=== PATIENT | male | born 1960 | race Caucasian/White ===

== ENCOUNTER 2017-05-05 10:28 | Emergency (ER) | payer OTHER ==
[~2017-05-05] VITALS: Ht 177.8 cm; Wt 88.6 kg
[2017-05-05] MEDS ORDERED: INSU100I26 SQ (10:43)
[2017-05-05] MEDS ORDERED: ASPI81 PO (10:43)
[2017-05-05] MEDS ORDERED: LAMO25 PO (10:47)
[2017-05-05] MEDS ORDERED: GABA-531 PO (10:47)
[2017-05-05] MEDS ORDERED: INSU100I15 SQ (10:47)
[2017-05-05] MEDS ORDERED: HYDR25TA PO (10:47)
[2017-05-05] MEDS ORDERED: LISI-662 PO (10:47)
[2017-05-05] MEDS ORDERED: FLUO-191 PO (10:47)
[2017-05-05] MEDS ORDERED: SODIUM CHLORIDE 0.9% 1,000 ML IV ONE (11:00)
[2017-05-05 11:07] LABS: GLUCOSE,POINT OF CARE 449 MG/DL (70-110)
[2017-05-05 11:16] LABS: BASOPHILS # (AUTO) 0.08 K/uL (0.00-0.20); BASOPHILS % (AUTO) 1.4 % (0.0-2.0); EOSINOPHILS % (AUTO) 1.96 % (1.0-6.0); HEMATOCRIT 43.3 % (41-53); HEMOGLOBIN 15.3 g/dL (13.5-17.5); LYMPHOCYTES # (AUTO) 1.7 K/uL (1.0-4.8); LYMPHOCYTES % (AUTO) 31.2 % (22.0-44.0); MEAN CORPUSCULAR HEMOGLOBIN 31.5 pg (26.0-34.0); MEAN CORPUSCULAR HGB CONC 35.2 G/dL (31.0-37.0); MEAN CORPUSCULAR VOLUME 89 fL (80-100); MONOCYTES # (AUTO) 0.4 K/uL (0.1-1.0); MONOCYTES % (AUTO) 8.3 % (2.0-9.0); NEUTROPHILS % (AUTO) 57.1 % (40.0-70.0); PLATELET COUNT (AUTO) 173 K/uL (150-450); RED BLOOD CELL COUNT(AUTO) 4.85 MIL/uL (4.50-5.90)
[2017-05-05 11:32] LABS: ALANINE AMINOTRANSFERASE 33 U/L (12-78); ALBUMIN 3.6 g/dL (3.4-5.0); ALKALINE PHOSPHATASE 91 U/L (46-116); ANION GAP 13 mmol/L (8-16); ASPARTATE AMINOTRANSFERASE 29 U/L (15-37); BILIRUBIN,TOTAL 0.5 mg/dL (0.1-1.0); CALCIUM, TOTAL 8.1 mg/dL (8.8-10.5); CARBON DIOXIDE 22 mmol/L (22-29); CHLORIDE 96 mmol/L (98-107); CREATININE 0.92 mg/dL (0.60-1.30); GLOMERULAR FILTR. RATE CALC > 60 mL/min (>60); POTASSIUM 4.1 mmol/L (3.5-5.1); SODIUM SERUM 131 mmol/L (136-145); TOTAL PROTEIN, SERUM 7.1 g/dL (6.4-8.2); UREA NITROGEN, BLOOD 14 mg/dL (7-18)
[2017-05-05 11:38] LABS: GLUCOSE,RANDOM 449 mg/dL (70-110)
[2017-05-05 11:53] LABS: APPEARANCE,URINE CLEAR (CLEAR); BILIRUBIN,URINE NEGATIVE (NEGATIVE); GLUCOSE, URINE (UA) >=1000 mg/dL (NEGATIVE); KETONES,URINE NEGATIVE (NEGATIVE); LEUKOCYTE ESTERASE ,URINE NEGATIVE (NEGATIVE); NITRATE,URINE NEGATIVE (NEGATIVE); OCCULT BLOOD,URINE NEGATIVE (NEGATIVE); PROTEIN,URINE NEGATIVE (NEGATIVE); UROBILINOGEN,URINE 0.2 mg/dL (<=1.0)
[2017-05-05 11:55] LABS: ACETONE,BLOOD NEGATIVE (NEGATIVE)
[2017-05-05 12:13] LABS: BACTERIA,URINE None Seen /HPF (None Seen); RBC,URINE None Seen /HPF (0-2); SQUAMOUS EPITHELIAL CELL,UR Few /LPF (None Seen); WBC,URINE None Seen /HPF (0-5)
[2017-05-05 12:13] LABS: GLUCOSE,POINT OF CARE 349 MG/DL (70-110)
[2017-05-05] MEDS ORDERED: INSULIN REGULAR, HUMAN 100 UNITS/ML IVP ONE (12:15)
[2017-05-05 13:05] VITALS: BP 130/84
== END 2017-05-05 13:33 | disposition home or self-care (01) ==
LOC: EMS 10:31
DX: E11.65 Type 2 diabetes mellitus with hyperglycemia (principal); F32.9 Major depressive disorder, single episode, unspecified; I10 Essential (primary) hypertension; Z79.4 Long term (current) use of insulin; Z79.82 Long term (current) use of aspirin
CPT/HCPCS: 36415; 80053; 81001; 82009; 82962; 83036; 85025; 96361; 96374; 99284; J1815; J7030

== ENCOUNTER 2022-01-14 16:46 | Emergency (ER) | payer MEDICAID, OTHER ==
[~2022-01-14] VITALS: Ht 177.8 cm; Wt 94.5 kg
[~2022-01-14 16:46] MED LIST: ASPI-1450 PO; FLUO-177 PO; GABA-1181 PO; HYDR25TA2 PO; INSU100I15 SQ; INSU100I26 SQ; LAMO25TA25 PO; LISI-894 PO
[2022-01-14 16:57] VITALS: BP 150/110
== END 2022-01-14 20:07 | disposition home or self-care (01) ==
LOC: EMS 17:19
DX: G51.0 Bell's palsy (principal); I10 Essential (primary) hypertension; E11.9 Type 2 diabetes mellitus without complications; F32.9 Major depressive disorder, single episode, unspecified; Z79.899 Other long term (current) drug therapy; Z79.4 Long term (current) use of insulin
CPT/HCPCS: 70450; 82948; 99284